=== PATIENT | female | born 1995 | race Two or more races ===

== ENCOUNTER 2017-02-13 21:11 | Emergency (ER) | payer SELFPAY ==
[~2017-02-13] VITALS: Ht 170.2 cm; Wt 61.2 kg
[2017-02-13 21:12] VITALS: BP 124/75
--- NOTE | 2017-02-13 21:40 | NUR ---
PT SEEN BY NEWTON WHITT. DENIES SI/HI. PT STATES HUNGRY PROVIDED W/ FOOD. D/C IN STABLE CONDITION.
== END 2017-02-13 21:43 | disposition home or self-care (01) ==
LOC: ER 21:12
DX: Z00.8 Encounter for other general examination (principal); Z88.8 Allergy status to other drugs, medicaments and biological substances
CPT/HCPCS: 99283; A4606; Z7610